=== PATIENT | female | born 1950 | race Caucasian/White ===

== ENCOUNTER 2018-06-03 08:50 | Day surgery (SDC) | payer BC ==
[~2018-06-03 08:50] MED LIST: CEFAZOLIN 2 Gram 2 GM/50 ML BAG IVPB ONE; CELECOXIB 100 MG CAPSULE PO ONE; FAMOTIDINE 20MG TABLET PO ONE; METOCLOPRAMIDE 10 MG TABLET PO ONE; SCOPOLAMINE 1 PATCH TDSY TD ONE; VANCOMYCIN HCL 1,000 MG in DEXTROSE 5 % IN WATER 250 ML IVPB ONE
[2018-06-03] MEDS ORDERED: KETAMINE HCL 100MG/1ML VIAL INJ ONE (08:51)
[2018-06-03] MEDS ORDERED: BUPIVACAINE 0.5% W/EPI MPF 30 ML VIAL IVP ONE (08:51)
[2018-06-03] MEDS ORDERED: ROPIVACAINE HCL (NAROPIN) /PF 5MG/ML 20ML VIAL IV ONE (08:51)
[2018-06-03] MEDS ORDERED: DEXAMETHASONE 4 MG/ML 1ML VIAL IVP ONE (08:51)
[2018-06-03] MEDS ORDERED: PROPOFOL 10 MG/ML VIAL IV ONE (08:51)
[2018-06-03] MEDS ORDERED: LABETALOL HCL 5MG/ML, 20ML VIAL IV ONE (08:51)
[2018-06-03] MEDS ORDERED: MIDAZOLAM HCL 2MG/2ML VIAL IV ONE (08:51)
[2018-06-03] MEDS ORDERED: TRANEXAMIC ACID 1,000 MG/10 ML ML IV ONE (08:51)
[2018-06-03 09:44] LABS: ABO GROUP A; ANTIBODY SCREEN NEGATIVE (NEGATIVE); RH TYPE NEGATIVE
[2018-06-03] MEDS ORDERED: AL HYDROX/MAG HYDROX 30ML UD PO PRN (13:29)
[2018-06-03] MEDS ORDERED: TRAMADOL HCL 50 MG TABLET PO PRN (13:29)
[2018-06-03] MEDS ORDERED: MAGNESIUM HYDROXIDE 30 ML UDC PO PRN (13:29)
[2018-06-03] MEDS ORDERED: HYDROCODONE/APAP 10/325 TABLET PO PRN (13:29)
[2018-06-03] MEDS ORDERED: ACETAMINOPHEN 325 MG TAB PO PRN (13:29)
[2018-06-03] MEDS ORDERED: ZOLPIDEM TARTRATE 5 MG TABLET PO PRN (13:29)
[2018-06-03] MEDS ORDERED: KETOROLAC 30 MG/ML VIAL IVP PRN ×2 (13:29)
[2018-06-03] MEDS ORDERED: DIPHENHYDRAMINE HCL 25 MG CAPSULE PO PRN (13:29)
[2018-06-03] MEDS ORDERED: HYDROMORPHONE HCL 2 MG/ML VIAL IM PRN (13:29)
[2018-06-03] MEDS ORDERED: NALOXONE 0.4 MG/1 ML VIAL IVP PRN (13:29)
[2018-06-03] MEDS ORDERED: ACETAMINOPHEN W/ CODEINE 300MG/60MG TABLET PO PRN ×2 (13:29)
[2018-06-03] MEDS ORDERED: BISACODYL 10 MG SUPP RC PRN (13:29)
[2018-06-03] MEDS: HYDROCODONE/APAP 10/325 TABLET PO PRN ×2 (14:37→22:49)
[2018-06-03] MEDS ORDERED: BUTALB/ACETAMINOPHEN/CAFFEINE TABLET PO PRN (14:50)
[2018-06-03] MEDS ORDERED: PNEUM 13-VAL/PF 0.5 ML IM ONE (14:50)
[2018-06-03] MEDS: LORAZEPAM 0.5 MG TABLET PO SCH ×2 (16:26→21:30)
--- NOTE | 2018-06-03 16:31 | Rehab Evaluation ---
Patient Information - Patient Information Diagnosis: R knee OA Ordered Treatment: PT Evaluate and Treat Status: Initial Evaluation Surgery: Yes (R TKA) Date of Surgery: 06/03/18 Past Medical/Surgical Hx: PAST MEDICAL/SURGICAL HISTORY Past Surgical History Garcia Varner scopes right knee scope 2013 PMH - Respiratory Hx Respiratory Disorders Yes Hx Bronchitis Yes: in past PMH - Cardiovascular Hx Cardiovascular Disorders Yes Hx Edema Yes: in the summer Hx Hypertension Yes: runs a little high sometimes Exercise Tolerance Fair Hx of Migraines Yes: 2-3 a month Comment: D/T knee pain PMH - Neuro Hx Neurological Disorders Yes PMH - GI Hx Gastrointestinal Disorders Yes Hx Gastroesophageal Reflux Yes: with [place] food PMH - Hx Genitourinary Disorders No PMH - Endocrine Hx Endocrine Disorders Yes Hx Diabetes Yes: Dx'd many years ago Hx of NIDDM Yes Comment: checks blood sugars occassionally 99-125 A1C 7.1 PMH - Musculoskeletal Hx Musculoskeletal Disorders Yes Hx Arthritis Yes: knees PMH - Psych Hx Psychiatric Problems Yes Hx Anxiety Yes: on meds Hx Depression Yes: sometimes PMH - Hematology/Oncology Hx Hematology/Oncology No Disorders Premorbid Status: Detail (The patient was previously independent with all mobility.) Social History: Detail (The patietn lives with spouse in a one story house with a basement and 3 steps without railing at the enterance. Patient's laundry is in the basement, however she stated she won't be going down there for awhile. The patient's bathroom is equipped with a tub/shower combination, shower bench, standard height toilet and a toilet riser.) Precautions: [place], Fall, Other (WBAT on the R LE) - Time With Patient Total Time Spent With Patient (Min): 30 Treatment Procedures: Detail (Initial Evaluation, gait training.) Subjective Information - Subjective Information Per Patient (The patient has complaints of R knee pain level 7 at the highest.) Objective Data - Mental Status Patient Orientation: Oriented x3 - Visual Perception Appears within normal limits for therapeutic activities - ROM Not within normal limits (The patient's R knee AROM is limited s/p surgery. All other LE AROM is WNL.) - Strength/Tone Not within normal limits (The patient's R LE strength was not tested secondary to s/p howver is functional. The patient's L LE strength is WNL.) - Bed Mobility Independent (The patient is independent with supine to and from sit transfer and scooting up in bed.) - Transfers Independent (The patient was independent with sit to and from stand transfer with verbal cues for proper technique.) - Balance Balance Sitting: Good Balance Standing: Good - Sensation Intact - Gait Detail (The patient ambulated with front wheeled walker a distance of 108 feet x 1 with supervision for safety only and handling of equipment.) Therapy Assessment - Therapy Assessment Detail (The patient was independent with supine to and from sit and sit to and from stand transfer, with supervision for safety only with ambulation. Feel the patient will progress well with mobility.) Problem List - Problem List Physical Therapy Problem List: Detail (Limited R knee AROM and decreased R LE strength.) Goals - Goals Physical Therapy Goals: 1) The patient will be independent with TKA HEP. 2) The patient will ambulate on stairs using proper technique with supervision for safety. Prognosis - Prognosis Good Plan - Plan Physical Therapy Plan: PT 1-2 sessions for gait training on levels and stairs and instruction in HEP.
[2018-06-03] MEDS: CEFAZOLIN 2 Gram 2 GM/50 ML BAG IVPB SCH (18:31)
[2018-06-03] MEDS: METFORMIN ER HCL 500 MG TAB.ER.24H PO SCH (21:31)
[2018-06-03] MEDS: DOCUSATE SODIUM 100 MG CAPSULE PO SCH (21:31)
[2018-06-03] MEDS: GLIMEPIRIDE 2 MG TABLET PO SCH (21:33)
[2018-06-03] MEDS: ONDANSETRON HCL IV 4 MG/2 ML VIAL IVP PRN (21:37)
[2018-06-03] MEDS ORDERED: SIMVASTATIN 20 MG TABLET PO SCH (22:00)
[2018-06-03] MEDS: POTASSIUM CHLORIDE/D5-0.9%NACL 20 MEQ/1,000 ML BAG IV SCH ×2 (22:51→23:10)
[2018-06-04] MEDS: HYDROCODONE/APAP 10/325 TABLET PO PRN ×2 (02:29→06:55)
[2018-06-04] MEDS: CEFAZOLIN 2 Gram 2 GM/50 ML BAG IVPB SCH ×2 (03:13→10:28)
[2018-06-04 06:39] LABS: HEMATOCRIT 33.5 % (35.0-47.0); HEMOGLOBIN 10.8 gm/dl (11.6-16.0)
[2018-06-04 06:51] LABS: BLOOD UREA NITROGEN 11 mg/dL (8-23); CREATININE 0.8 mg/dL (0.5-0.9); EST GLOMERULAR FILTRATION RATE > 60 mL/min; GLUCOSE,RANDOM 192 mg/dL (74-109)
[2018-06-04] MEDS ORDERED: PANTOPRAZOLE SODIUM 40 MG TABLET PO SCH (07:00)
--- NOTE | 2018-06-04 08:50 | Operative Note ---
DATE OF SURGERY: 06/03/2018 PREOPERATIVE DIAGNOSIS: End-stage arthrosis of the right knee. POSTOPERATIVE DIAGNOSIS: End-stage arthrosis of the right knee. OPERATION: Cemented right total knee arthroplasty using [employer] II components with a size 6 Oxinium femur, a size 5 stem tibia baseplate, a 9 mm lipped highly crosslinked tibial insert, and a 35 mm all plastic patella. Staff Surgeon: You Gr MD Anesthesia: Spinal. PREPARATION: Chloraprep. INDIVIDUAL CONSIDERATIONS: None. PROCEDURE: The patient was taken to the operating room, placed supine on the operating room table. She had a successful induction of spinal anesthetic. The right lower extremity was prepped and draped in the usual fashion. The limb was elevated and tourniquet was inflated to 250 mmHg. The patient had a midline approach to the knee. Sharp dissection carried down through skin and subcutaneous tissue. Small veins were coagulated with a Bovie. A medial arthrotomy was performed. The patella was everted and the knee was flexed. She had exposed bone on the medial and patellofemoral and some areas of the lateral compartment. Fat pad was resected, ACL was sacrificed, provisional anterior meniscectomies were performed. The capsule was released from the medial proximal tibia. The initial femoral commercial airline pilot hole was then made freehand. The intramedullary femoral cutting jig was placed. It was cut in 7.0 degrees of valgus and adjusted for rotation and secured with pins for a 10 mm resection. The initial transverse cut was then made. The skin guide was placed in the anterior and posterior commercial airline pilot holes. It was found that a size 6 would be appropriate. The anterior and posterior cuts followed by chamfer cuts were made. Osteophytes removed, and a size 6 trial was placed and found to fit well. The tibia was brought forward, and the remainder of the meniscal remnants removed with a Bovie. The extraarticular tibial cutting jig was placed. It was cut in neutral with a 3-degree AP slope. Care was taken to adjust for rotation and flexion using the extraarticular alignment guide and bony landmarks. It was set for a 9 mm resection keyed off the high lateral side and secured with pins. When cutting the tibia, care was taken to preserve the PCL insertion on the tibia. Large medial osteophytes were removed, and I was able to fit a size baseplate trial. It was adjusted for rotation and secured with pins. With a 9 mm trial and size 6 femoral trial, there was excellent motion and stability, ligamentous balance, rotation alignment were thought to be normal. The femoral commercial airline pilot holes were impacted and the tibial keel stamp was impacted, and these trial components were removed. The patient had a thick patella and roughly 9 mm of bone was removed freehand. I was able to fit a size 35 patella, and the 3 commercial airline pilot holes were drilled. The tourniquet was let down briefly to get bleeders posteriorly and then placed back up again. The knee was then thoroughly irrigated out with pulsatile Betadine and saline to remove any visual or palpable debris. Bony surfaces were then dried. A size 5 stem tibia baseplate was cemented into place followed by impaction of the 9 mm lipped highly crosslinked tibial insert followed by cementing in the size 6 Oxinium femur followed by cementing in the 35 mm all plastic patella. The implant surfaces were compressed, excess cement was removed, and after the cement had set, there was excellent motion and stability, ligamentous balance, rotation alignment, and patellofemoral tracking were normal. No lateral release was required. Tourniquet was let down. Hemostasis was obtained with a Bovie. The skin, periosteum, and subcu were then infiltrated with 30 mL of 0.5% Marcaine with epinephrine. The capsule was then closed with a running #2 quill, subcu was closed in layers with running 0 quill, skin was closed with isaac. The patient did receive 1 g of tranexamic acid preoperatively. I mixed 1 g of tranexamic acid with 30 mL of saline and injected into the knee through a sterile 18-gauge needle and a sterile bulky compressive dressing was applied. The patient tolerated the procedure well. Needle and sponge counts were correct. Estimated blood loss was minimal, and he was taken back to recovery in good condition. There were no complications. DANA
[2018-06-04] MEDS ORDERED: FERROUS SULFATE 325 MG TAB PO SCH (10:00)
[2018-06-04] MEDS ORDERED: RIVAROXABAN 10 MG TABLET PO SCH (10:00)
--- NOTE | 2018-06-04 10:09 | Rehab Evaluation ---
Patient Information - Patient Information Diagnosis: R knee OA Ordered Treatment: OT Evaluate and Treat Status: Initial Evaluation Surgery: Yes (R TKA) Date of Surgery: 06/03/18 Past Medical/Surgical Hx: PAST MEDICAL/SURGICAL HISTORY Past Surgical History Garcia Varner scopes right knee scope 2013 PMH - Respiratory Hx Respiratory Disorders Yes Hx Bronchitis Yes: in past PMH - Cardiovascular Hx Cardiovascular Disorders Yes Hx Edema Yes: in the summer Hx Hypertension Yes: runs a little high sometimes Exercise Tolerance Fair Hx of Migraines Yes: 2-3 a month Comment: D/T knee pain PMH - Neuro Hx Neurological Disorders Yes PMH - GI Hx Gastrointestinal Disorders Yes Hx Gastroesophageal Reflux Yes: with [place] food PMH - Hx Genitourinary Disorders No PMH - Endocrine Hx Endocrine Disorders Yes Hx Diabetes Yes: Dx'd many years ago Hx of NIDDM Yes Comment: checks blood sugars occassionally 99-125 A1C 7.1 PMH - Musculoskeletal Hx Musculoskeletal Disorders Yes Hx Arthritis Yes: knees PMH - Psych Hx Psychiatric Problems Yes Hx Anxiety Yes: on meds Hx Depression Yes: sometimes PMH - Hematology/Oncology Hx Hematology/Oncology No Disorders Premorbid Status: Detail (The patient was previously independent with all mobility, her and spouse share home mgmt and laundry, spouse is responsible for meal prep.) Social History: Detail (The patient lives with spouse in a one story house with a basement and 2 steps without railing at the entrance. Patient's laundry is in the basement, however she stated she won't be going down there for awhile. The patient's bathroom is equipped with a tub/shower combination, shower bench, standard height toilet and a toilet riser. No grab bars are present in the bathroom. She has a 2 wheeled walker, crutches, shower seat and toilet riser.) Precautions: [place], Fall, Other (WBAT on the R LE) - Time With Patient Total Time Spent With Patient (Min): 35 Treatment Procedures: Detail (OT eval low complexity) Subjective Information - Subjective Information Per Patient Objective Data - Pain Pain Present: Yes (-07/30) - Mental Status Patient Orientation: Oriented x3 - Visual Perception Appears within normal limits for therapeutic activities - ROM Within normal limits ([place] UE AROM WNL) - Strength/Tone Within normal limits ([place] UE strength WNL) - Coordination Appears within normal limits for therapeutic activities - Transfers Independent (Ind with sit to stand from chair height.) - Balance Balance Sitting: Good Balance Standing: Good - Sensation Intact - ADL's/IADL's Detail (Pt educated and able to demonstrate learning of modified LE dressing techniques including doffing slipper socks and briefs and donning underwear, pants and shoes. Reviewed kitchen and shower safety and modifications, pt verbalized understanding.) Therapy Assessment - Therapy Assessment Detail (Pt is Ind with modified LE dressing techniques.) Problem List - Problem List Physical Therapy Problem List: Detail (Limited R knee AROM and decreased R LE strength.) Occupational Therapy Problem List: Detail (No current IP OT problems identified. ) Goals - Goals Physical Therapy Goals: 1) The patient will be independent with TKA HEP. 2) The patient will ambulate on stairs using proper technique with supervision for safety. Occupational Therapy Goals: No current IP OT goals identified. Prognosis - Prognosis Good Plan - Plan Physical Therapy Plan: PT 1-2 sessions for gait training on levels and stairs and instruction in HEP. Occupational Therapy Plan: No further IP OT recommended. Thank you for this referral.
[2018-06-04] MEDS: DOCUSATE SODIUM 100 MG CAPSULE PO SCH (10:26)
[2018-06-04] MEDS: METFORMIN ER HCL 500 MG TAB.ER.24H PO SCH (10:26)
[2018-06-04] MEDS: GLIMEPIRIDE 2 MG TABLET PO SCH (10:26)
--- NOTE | 2018-06-04 10:45 | Physical Therapy Tx Note ---
Physical Therapy Tx Note - Treatment Note Tolerated: Good Total Time Spent With Patient: 30 Physical Therapy Tx Note: Detail (The patient was up in chair when PT arrived. The patient ambulated with front wheeled walker independently a distance of 200 feet x 1 WBAT on the R LE . The patient ambulated on 3 steps using proper technique with supervision for safety. The patient completed the following TKA HEP: heel slides seated, quad sets, hamstring sets, SLR, gluteal sets, ankle pumps. The patient has met all inpatient goals. The patient is discharged from inpatient PT.) Physical Therapy Problem List: Detail (Limited R knee AROM and decreased R LE strength.) Physical Therapy Goals: 1) The patient will be independent with TKA HEP. (Goal Met). 2) The patient will ambulate on stairs using proper technique with supervision for safety.(Goal Met) Physical Therapy Plan: The patient has met all inpatient goals. The patient is to continue with Home PT.
[2018-06-04] MEDS: POTASSIUM CHLORIDE/D5-0.9%NACL 20 MEQ/1,000 ML BAG IV SCH (11:54)
[2018-06-04] MEDS: LORAZEPAM 0.5 MG TABLET PO SCH (11:55)
[2018-06-04] MEDS: ONDANSETRON HCL IV 4 MG/2 ML VIAL IVP PRN (12:17)
== END 2018-06-04 15:10 | disposition home or self-care (01) ==
LOC: SUR 08:50 → MEDSURG 13:46 → SUR 06-04 15:10
PROVIDERS: ATTEND Orthopaedic Surgery
DX: M17.11 Unilateral primary osteoarthritis, right knee (principal); E78.00 Pure hypercholesterolemia, unspecified; E11.9 Type 2 diabetes mellitus without complications
CPT/HCPCS: 27447; 01402; 64447; 85018; 85014; 80048; 36416; 82948; 86900; 86901; 86850; 90670; J2405 ×2; J3370; J1170; J0690 ×2; J3490 ×4; J2795; 76942; 97110; 97530; J3480; J7060